=== PATIENT | male | born 1950 | race Caucasian/White ===

== ENCOUNTER 2017-02-12 20:53 | Inpatient (IN) | payer MEDICARE, BC ==
[~2017-02-12] VITALS: Ht 182.9 cm; Wt 94.5 kg
--- NOTE | ~2017-02-12 | DS ---
PATIENT'S NAME: ANOOP COHEN [facility] AGE: 66 Y [address] ROOM: [place] [address] LOCATION: GPCU ADMIT DATE: 02/13/2017 Discharge Summary DISCHARGE DATE: 02/15/2017 FAMILY PHYSICIAN: Physician, Unknown ATTENDING PHYSICIAN: Nacho Valencia V ADMITTING DIAGNOSIS: Acute on chronic pancreatitis. DISCHARGE DIAGNOSIS: Acute on chronic pancreatitis, resolved. SECONDARY DIAGNOSES: 1. Hypertension. 2. Chronic cough. 3. Diarrhea, resolved. PROCEDURE: CT abdomen and pelvis. CONSULTATION: GI. HISTORY OF PRESENT ILLNESS: The patient is a 66-year-old male with past medical history of long-standing idiopathic pancreatitis, who presents here from [place] with pancreatitis. The patient was recently admitted to [facility] for pancreatitis and discharged home. However, he presented again with same symptoms. The patient was transferred to our hospital for further care. HOSPITAL COURSE: The patient was admitted. Initially, he had moderate epigastric tenderness. On presentation, lipase level was 6909. The patient was started on IV fluids, n.p.o., and pain management. CT abdomen and pelvis was acquired, which showed acute pancreatitis with adjacent inflammatory changes. The patient's symptoms improved with bowel rest, IV fluid, and pain medication. The patient was seen by GI. The patient has had extensive workup in the past including ERCP and stent placement. The patient's symptoms improved. The patient was discharged in stable condition to home with followup with GI. A long discussion was made about having more workup to be done at [facility]. The patient to follow up with Dr. Henry in 2 weeks. The patient was discharged on a low-fat diet. Dietitian was consulted to talk with family about the low-fat diet. Also, discussion was made about Creon use. Apparently, the patient was not compliant with Creon use. The patient also reports of chronic cough. This has been going on for few years. The patient has a history of tobacco use, currently does not smoke. Recommended to have PFTs as an outpatient for diagnosis of COPD and also suspicious for GERD as presenting with productive cough. We will discharge PATIENT'S NAME: ANOOP COHEN [facility] AGE: 66 Y [address] ROOM: [place] [address] LOCATION: GPCU ADMIT DATE: 02/13/2017 Discharge Summary DISCHARGE DATE: 02/15/2017 FAMILY PHYSICIAN: Physician, Unknown ATTENDING PHYSICIAN: Nacho Valencia V the patient. The patient was discharged on Protonix. CONDITION: Stable. DISPOSITION: Home. DISCHARGE MEDICATION: Please see MAR. DISCHARGE INSTRUCTION: Low-fat diet. Follow up with Dr. Henry as an outpatient and primary care physician. RECOMMENDATION: To be followed by GI and have the patient seen at [facility] in [place] for further workup of chronic pancreatitis. FOLLOWUP: Primary care physician and GI. Greater than 30 minutes was spent on patient care. MD IOANA WINTER/jamila /[id number] d: 02/16/17 0329 t: 02/19/17 1749, DISCHARGE SUMMARY
--- NOTE | ~2017-02-12 | HP ---
PATIENT'S NAME: ANOOP COHEN [facility] AGE: 66 Y [address] ROOM: [place] [address] [facility] ADMIT DATE: 02/12/2017 History & Physical DISCHARGE DATE: FAMILY PHYSICIAN: PHYSICIAN, UNKNOWN ATTENDING PHYSICIAN: GEETA PAINTING V DATE OF SERVICE: CHIEF COMPLAINT: Pancreatitis. HISTORY OF PRESENT ILLNESS: The patient is a 66-year-old male with past medical history of longstanding idiopathic pancreatitis, approximately 20 year since the time of his cholecystectomy. The patient tells me that his pancreatitis acts up once every 6 months, usually triggered by poor dietary adherence, eating high fatty foods. The patient developed another bout of nausea, vomiting, and abdominal pain approximately 8 to 9 days ago after eating some fatty foods. He was admitted to the hospital in [place] and treated conservatively with fluids and n.p.o. He got better but today he developed similar symptoms. In [place], he was found to have an amylase of 15,000, where as 9 days ago it was 41,000. A transfer to [facility] was requested for higher level of care. At this point, the patient is actually quite comfortable and tells me as long as he gets morphine he feels fine. He does admit to some abdominal distention but no chest pain or shortness of breath. REVIEW OF SYSTEMS: All systems have been reviewed and are negative aside from pertinent positives mentioned above. PAST MEDICAL HISTORY: 1. Chronic pancreatitis on Creon. 2. "Arthritis". 3. Prior workup for questionable myelodysplastic syndrome though that does not appear to be the case. SOCIAL HISTORY: The patient was a smoker but quit in 1989. He is still actively ranching and farming. FAMILY HISTORY: Reviewed and is noncontributory due to his advanced age. PATIENT'S NAME: ANOOP COHEN [facility] AGE: 66 Y [address] ROOM: [place] [address] LOCATION: GPCU ADMIT DATE: 02/12/2017 History & Physical DISCHARGE DATE: FAMILY PHYSICIAN: PHYSICIAN, UNKNOWN ATTENDING PHYSICIAN: GEETA PAINTING V CURRENT MEDICATIONS: 1. Amlodipine. 2. Finasteride. 3. Creon. 4. Lorazepam. 5. Zofran. 6. Pantoprazole. 7. Simvastatin. 8. Flomax. PHYSICAL EXAMINATION: VITAL SIGNS: Temperature 98.5, pulse 65, respirations 18, blood pressure 134/72, saturating 93% on room air. GENERAL: Well-developed, well-nourished, middle-aged male, nontoxic, in no acute distress. NEUROLOGIC: Nonfocal. EYES: Shows pupils are equal and reactive to light. LYMPHATIC: Shows no cervical lymphadenopathy. ENDOCRINE: Shows no thyromegaly. LUNGS: Clear to auscultation. HEART: Rate is regular. GI: Abdomen is slightly distended, tympanic, soft, nontender with normoactive bowel sounds. : No costovertebral angle tenderness. VASCULAR: 2+ pedal pulses. MUSCULOSKELETAL: Unremarkable. SKIN: Warm and dry. PSYCHIATRIC: Reveals appropriate mood, cognition, and affect. LABORATORY DATA: Lab results drawn at [facility] are significant for white count of 12.7, lipase of 6900, amylase 481. Unremarkable basic metabolic profile otherwise. ASSESSMENT AND PLAN: This is a 66-year-old male who has been admitted with a recurrent bout of chronic pancreatitis. At this point, he appears to be fairly stable. We will keep him n.p.o. over overnight. We will hydrate him with normal saline and provide him with opioids for symptom support. We will get a CAT scan of abdomen and pelvis to rule out formation of pseudocyst/other abnormalities. We will get a gastroenterology evaluation in the morning as the patient has not seen a machine operator packaging in quite some time. 1. History of benign prostatic hyperplasia. As imputed from his medicines, will continue Flomax and Proscar. 2. Deep vein thrombosis prophylaxis will be instituted if the patient stays PATIENT'S NAME: ANOOP COHEN [facility] AGE: 66 Y [address] ROOM: [address] [address] [facility] ADMIT DATE: 02/12/2017 History & Physical DISCHARGE DATE: FAMILY PHYSICIAN: PHYSICIAN, UNKNOWN ATTENDING PHYSICIAN: GEETA PAINTING V in the hospital for more than 48 hours. Additional management will depend on clinical course. Time dictated to this patient's encounter is 35 minutes. MD TJ CARBALLO/modl /[id number] D: T: HISTORY & PHYSICAL
--- NOTE | ~2017-02-12 | CON ---
PATIENT'S NAME: DANIEL COHEN [facility] AGE: 66 Y [address] ROOM: [place] [address] LOCATION: GPCU ADMIT DATE: 02/12/2017 Consultation DISCHARGE DATE: FAMILY PHYSICIAN: PHYSICIAN, UNKNOWN ATTENDING PHYSICIAN: GEETA PAINTING V DATE OF CONSULTATION: 02/13/2017 REFERRING PHYSICIAN: KATELYNN GALLEGOS MD REASON FOR CONSULT: Pancreatitis. HISTORY OF PRESENT ILLNESS: Daniel Cohen is a very pleasant 66-year-old white male, who was admitted in view of history of abdominal pain in association with elevated amylase and lipase values in the thousands range. The patient carries previous history of recurrent pancreatitis of unknown etiology to me. The patient is status post lap jovani as well as ERCP, possible sphincterotomy, and placement of "stents." I am not sure if he has had a trial of pancreatic stents. This was several years ago. He states he gets these attacks of pancreatitis every 6 months or so which he ascribes to noncompliance with diet. He does not drink alcohol. There is no previous history of alcohol abuse. He does have history of nicotine abuse, but quit smoking in 1989. He is taking medications for his cholesterol, but does not know if his triglyceride levels have been high in the past. A CT scan of the abdomen was ordered and is pending. His CBC and liver function tests are completely normal in this admission. PAST MEDICAL HISTORY: 1. Chronic recurrent pancreatitis, etiology unclear. 2. Gastroesophageal reflux disease. 3. History of C. difficile infection. PAST SURGICAL HISTORY: 1. Lap jovani. 2. ERCP sphincterotomy with possible stents. 3. EGD and colonoscopy. 4. Hemorrhoidal banding. HOME MEDICATIONS: Included Norvasc, Proscar, Creon which he takes only once daily, Ativan, Zofran, Percocet, Protonix, Zocor, and Flomax. ALLERGIES: PATIENT'S NAME: DANIEL COHEN [facility] AGE: 66 Y [address] ROOM: [place] [address] LOCATION: GPCU ADMIT DATE: 02/12/2017 Consultation DISCHARGE DATE: FAMILY PHYSICIAN: PHYSICIAN, UNKNOWN ATTENDING PHYSICIAN: GEETA PAINTING V NONE KNOWN. SOCIAL HISTORY: More than 20 pack year smoking, quit in 1989. He denies alcohol use or previous history of alcohol abuse. FAMILY HISTORY: None for known pancreatitis. REVIEW OF SYSTEMS: The 10-point review of system otherwise negative. PHYSICAL EXAMINATION: GENERAL: A middle-aged man in no acute distress. He is awake, alert, and appropriate with stable vital signs. HEENT: Atraumatic normocephalic. Pupils round and reactive. Nonicteric sclerae. NECK: Supple. No palpable nodes. No thyromegaly. No JVD. CHEST: Clear to auscultation. HEART: S1 and S2 normal. ABDOMEN: Soft and obese with mild epigastric tenderness. No palpable masses. Bowel sounds are present. EXTREMITIES: No edema. NEUROLOGIC: Awake, alert, and appropriate without any focal deficits. LABORATORY DATA: As noted above. CT scan of the abdomen, pending. ASSESSMENT AND PLAN: A 66-year-old male with history of acute on chronic pancreatitis, on Creon replacement therapy. The patient is post lap jovani, ERCP, sphincterotomy, and possible "stents" in the past. We will await the results of the CT scan of the abdomen and continue with conservative management with which he is improving. More than likely, he will require evaluation of his pancreas at [facility] by obtaining an EUS and possibly ERCP, removal of pancreatic ductal stones and/or the stents. The therapeutic options in this conditions are usually limited, however, can be approached in this fashion. In the interim, he understands he should be following a low-fat diet and keeping his weight under control. Thank you for this interesting consult. PATIENT'S NAME: DANIEL COHEN [facility] AGE: 66 Y [address] ROOM: [address] [address] [facility] ADMIT DATE: 02/12/2017 Consultation DISCHARGE DATE: FAMILY PHYSICIAN: PHYSICIAN, UNKNOWN ATTENDING PHYSICIAN: GEETA PAINTING V KATELYNN GALLEGOS MD AM/jamila /[id number] d: 02/13/17 1348 t: 02/14/17 0733, CONSULTATION REPORT
[2017-02-12] MEDS ORDERED: NORVASC10 MG PO (22:45)
[2017-02-12] MEDS ORDERED: CREON PO (22:46)
[2017-02-12] MEDS ORDERED: PROSCAR5 MG PO ×2 (22:46→22:50)
[2017-02-12] MEDS ORDERED: ATIVAN 1 MG1 MG PO (22:47)
[2017-02-12] MEDS ORDERED: FLOMAX0.4 MG PO (22:47)
[2017-02-12] MEDS ORDERED: PERCOCET 5-3251 EACH PO (22:49)
[2017-02-12] MEDS ORDERED: ZOCOR20 MG PO (22:50)
[2017-02-12] MEDS ORDERED: PROTONIX40 MG PO (22:50)
[2017-02-12] MEDS ORDERED: ZOFRAN ODT4 MG PO (22:51)
[2017-02-12 23:14] LABS: BASOPHIL % 0.2 %; EOSINOPHIL # 0.1 K/uL (0.0-0.5); EOSINOPHIL % 0.7 %; HEMATOCRIT 38.3 % (37.0-53.0); HEMOGLOBIN 13.1 g/dL (11.0-16.0); IMMATURE GRANULOCYTE # 0.1 K/uL (0.0-0.3); IMMATURE GRANULOCYTE % 0.6 %; LYMPHOCYTE # 0.9 K/uL (0.8-4.0); LYMPHOCYTE % 6.9 %; MCH 29.7 pg (27.0-34.0); MCHC 34.2 gm/dL (32.0-36.5); MCV 86.8 fl (83.0-98.0); MONOCYTE # 0.8 K/uL (0.0-1.0); MONOCYTE % 6.2 %; MPV 10.8 fl (9.4-12.4); NEUTROPHIL # (ANC) 10.8 K/uL (1.4-9.0); NEUTROPHIL % 85.4 %; NRBC % 0 /100WBC (0-0.00); PLATELET COUNT 128 K/uL (150-450); RBC 4.41 M/uL (3.50-5.50); RDW-CV 13.3 % (11.9-14.6); WBC 12.7 K/uL (4.0-11.0)
[2017-02-12 23:25] LABS: INR - (THERAPEUTIC) 1.08 (0.92-1.07); PROTIME 11.4 SECONDS (9.8-11.4); PTT 31 SECONDS (25-32)
[2017-02-12 23:31] LABS: ALBUMIN 2.7 gm/dL (3.5-5.0); ALK PHOS 98 IU/L (33-138); ALT 50 IU/L (12-78); ANION GAP 11.9 (10.0-19.0); AST 30 IU/L (10-40); BLOOD UREA NITROGEN 11 mg/dL (6-24); CALCIUM 8.1 mg/dL (8.5-10.5); CHLORIDE 107 mMol/L (96-110); CO2 27 mMol/L (22-32); CREATININE 0.9 mg/dL (0.6-1.3); ESTIMATED GFR (MDRD EQUATION) > 60; POTASSIUM 3.9 mMol/L (3.7-5.1); SODIUM 142 mMol/L (135-145); TOTAL BILIRUBIN 0.6 mg/dL (0.0-1.5); TOTAL PROTEIN 6.5 g/dL (6.0-8.4)
--- NOTE | 2017-02-12 23:46 | NUR ---
Patient admitted from [place] via EMS to PCU around 2234 for pancreatitis. Patient had been experiencing abdominal pain with diarrhea for the last few days. He states he has had C. diff in the past secondary to antibiotics. He received morphine x2 and Zofran x1 [place] [address]. Patient afebrile and other VSS on arrival to the floor. He is alert/oriented x3. Significant history of HTN and GERD. Has had cholecystectomy. Patient rated pain 1/10 on arrival to the floor and he also denied any nausea.
--- NOTE | 2017-02-13 05:12 | NUR ---
Significant Event: Patient is alert/oriented x3. Vital signs stable. Off telemetry per MD order. On room air. Morphine given x2 last night for abdominal/epigastric pain, with relief. NS infusing at 100 mL/hr. On clear liquid diet. Denies any nausea. Follow up: CT of abdomen today. GI to see patient today.
--- NOTE | 2017-02-13 15:51 | NUR ---
SIGNIFICANT EVENT: Patient A/O x3. VSS. MSU status-telemetry dc'd. On RA. NS infusing at 100mL/hr in R) posterior arm IV. Has had complaints of diarrhea-was negative for c.diff. GI consulted for pancreatitis. CT today of abdomen with contrast. R) side tender. Zofran given prophylactically prior to patient drinking oral contrast per patient request-no c/o nausea. No c/o pain today. Remains on clear liquid diet. Refused heparin subq, pneumatics to be on at all times. FOLLOW UP: Continue current plan of care.
--- NOTE | 2017-02-14 06:02 | NUR ---
Significant Event: DENIES ABD PAIN ALL NIGHT. C/O BACK PAIN FROM LAYING IN BED. NO C/O NAUSEA. ONLY TOOK SIPS TO DRINK ALL NIGHT. VOIDING WELL PER URINAL. Follow up:
[2017-02-14 06:18] LABS: BASOPHIL % 0.4 %; EOSINOPHIL # 0.2 K/uL (0.0-0.5); EOSINOPHIL % 2.1 %; HEMATOCRIT 35.9 % (37.0-53.0); HEMOGLOBIN 12.2 g/dL (11.0-16.0); IMMATURE GRANULOCYTE # 0.1 K/uL (0.0-0.3); IMMATURE GRANULOCYTE % 0.7 %; LYMPHOCYTE # 0.8 K/uL (0.8-4.0); LYMPHOCYTE % 9.8 %; MCH 29.5 pg (27.0-34.0); MCV 86.7 fl (83.0-98.0); MONOCYTE # 0.7 K/uL (0.0-1.0); MONOCYTE % 7.8 %; MPV 10.8 fl (9.4-12.4); NEUTROPHIL # (ANC) 6.8 K/uL (1.4-9.0); NEUTROPHIL % 79.2 %; NRBC % 0 /100WBC (0-0.00); PLATELET COUNT 116 K/uL (150-450); RBC 4.14 M/uL (3.50-5.50); RDW-CV 13.2 % (11.9-14.6); WBC 8.5 K/uL (4.0-11.0)
[2017-02-14 06:32] LABS: ALBUMIN 2.5 gm/dL (3.5-5.0); ALK PHOS 84 IU/L (33-138); ALT 40 IU/L (12-78); ANION GAP 12.1 (10.0-19.0); AST 25 IU/L (10-40); BLOOD UREA NITROGEN 9 mg/dL (6-24); CALCIUM 7.8 mg/dL (8.5-10.5); CHLORIDE 108 mMol/L (96-110); CO2 22 mMol/L (22-32); CREATININE 0.8 mg/dL (0.6-1.3); ESTIMATED GFR (MDRD EQUATION) > 60; POTASSIUM 4.1 mMol/L (3.7-5.1); SODIUM 138 mMol/L (135-145); TOTAL BILIRUBIN 0.6 mg/dL (0.0-1.5); TOTAL PROTEIN 6.1 g/dL (6.0-8.4)
--- NOTE | 2017-02-14 17:26 | NUR ---
SIGNIFICANT EVENT: Patient A&O x3. MSU status-no tele. On RA. NS running at 100mL/hour in R) posterior forearm. No c/o pain this shift. Ambulated in the hallway multiple times independently. Diet advanced to low fat. SIGNIFICANT EVENT: Possible d/c to home tomorrow.
--- NOTE | 2017-02-15 05:10 | NUR ---
Significant Event: A/O x3. Afebrile. Denies pain. VSS on RA. Bowel sounds active. Tolerated supper well, no nausea/vomiting. Ambulated several times in room and hicks. LS clear/dim. Follow up: Possible discharge today.
--- NOTE | 2017-02-15 10:22 | NUR ---
PATIENT ORIENTED TO PERSON AND TIME. DISORIENTED TO PLACE, HOWEVER RE-ORIENTS EASILY. VERY ALERT AND CONVERSATIONAL THIS MORNING, MAKING JOKES WITH STAFF AND DAUGHTER. LAST VITALS: 146/65-94, HR 78, 16 RR, 97.7 ORAL TEMP, 95% ON ROOM AIR. CRACKLES HEARD TO BILATERAL BASES. MD AWARE WITH LASIX TO BE RESTARTED AT [facility]. WEIGHT TODAY 61.7 KG. BM TODAY BEFORE TRANSFER. INCONTINENT OF URINE. NO C/O PAIN UNTIL REPOSITIONING WITH DISCOMFORT TO RIGHT LEG. NO TYLENOL GIVEN THIS MORNING. TRANSFERRED TO BEDSIDE COMMODE 3 PERSON ASSIST WITH THERAPY, OTHERWISE TOTAL LIFT. TAKES PILLS WITHOUT DIFFICULTY.
--- NOTE | 2017-02-15 10:52 | NUR ---
Introduced self and CM role to Daniel. His was in the room when I was visiting with him. Daniel tells me that he lives at home in [place], [place] with and he is planning on returning there when doctors dismiss him. He is hoping for today. Daniel denies any needs for DME or HHC when he leaves. Daniel does his own medications at home, he states [facility]. He states that [facility] as a PCP in [place], but can't tell me the name of the doctor he see's off the top of his head. If he needs something emergent, he often goes to the [facility] and sees' whoever is there. Most generally he tells me that he sees' but he "wouldn't consider him a PCP". Daniel and deny any other questions, needs or concerns. CM to continue to follow and assist. Plan home possibly today.
--- NOTE | 2017-02-15 13:57 | NUR ---
CONSULT RECEIVED FOR LOW FAT DIET ED. PT HAS CHRONIC PANCREATITIS. HE HAS FOLLOWED A LOW FAT DIET IN THE PAST. WENT OVER INFORMATION WITH PT AND PT'S . WRITTEN INFORMATION LEFT W/PT, ALONG WITH RD CONTACT INFORMATION; ENCOURAGED TO CALL WITH ANY QUESTIONS. EXPECT GOOD COMPLIANCE.
--- NOTE | 2017-02-15 14:44 | NUR ---
PATIENT AND GIVEN WRITTEN DISMISSAL INSTRUCTIONS INCLUDING NEW HOME MEDICATION LIST WITH INFORMATION ON NEW MEDS, PRESCRIPTIONS, FOLLOW-UP APPOINTMENT TIMES, AND DIET RESTRICTIONS WITH SLEEVE BASTER CONSULT PRIOR TO DISMISSAL. HANDOUTS OF LOW FAT DIET PROVIDED TO PATIENT AND . PIV REMOVED FROM INNER RIGHT FA WITH GAUZE AND COBAN APPLIED. PATIENT DRESSED AND TAKEN TO FRONT OF [facility] ENTRANCE WITH RN, AND BELONGINGS AT 1410.
== END 2017-02-15 14:10 | disposition disaster alternative care site (69) | DRG 440 ==
LOC: GPCU 22:29
PROVIDERS: Internal Medicine; Internal Medicine Gastroenterology; ADMIT Internal Medicine
DX: K85.90 Acute pancreatitis without necrosis or infection, unspecified (principal); D69.6 Thrombocytopenia, unspecified; J44.9 Chronic obstructive pulmonary disease, unspecified; K86.1 Other chronic pancreatitis; N40.0 Benign prostatic hyperplasia without lower urinary tract symptoms; R19.7 Diarrhea, unspecified; I10 Essential (primary) hypertension; K21.9 Gastro-esophageal reflux disease without esophagitis; Z91.11 Patient's noncompliance with dietary regimen; Z87.891 Personal history of nicotine dependence
CPT/HCPCS: J1644; J2270; J2405; J7030; Q9967